=== PATIENT | male | born 1955 | race Caucasian/White ===

== ENCOUNTER 2017-03-05 13:56 | Emergency (ER) | payer BC ==
[~2017-03-05] VITALS: Ht 180.3 cm; Wt 11.0 kg
[~2017-03-05 13:56] MED LIST: APRE30TA2 PO; ASPI-630 PO; CETI10TA22 PO; CHLO4TAB PO; DOCU-109 PO; GABA-586 PO; HYDR-2766 PO; LISI10TA2 PO; METO25TA2 PO; POTA10TA10 PO; SIMV40TA3 PO; TRAM50TA PO
[2017-03-05] MEDS ORDERED: ONDA8TAB12 PO (14:19)
--- NOTE | 2017-03-05 14:19 | PHYS DOC ---
Past History Past Medical History: Hypertension, [place] Past Surgical History: Coronary Bypass Surgery, Tonsillectomy Additional Past Surgical Histo: exploratory laparotomy for ruptured spleen intra-abdominal injury and retai Smoking: Cigarettes Alcohol Use: Occasionally Drug Use: Marijuana, Opiates Adult General Chief Complaint Chief Complaint: dizzy spell [facility] HPI This patient is a pleasant 61-year-old male with history of hypertension hyperlipidemia prior heart disease requiring CABG and multiple other medical problems presents with a dizzy spell while he was in a recumbent position. Patient was working underneath table with a headlamp on when he looked up sharply felt a spinning sensation and became acutely nauseated. An attempt to calm himself he laid in his back and pushed himself out on the floor to get close to the phone when he vomited once nonbilious nonbloody emesis with mild food chunks. Patient denied any headache, chest pain, abdominal pain with the event. And at this point here in the emergency family is symptom-free. He denies any vision changes, he changed in speech pattern, challenges and memory facial weakness, weakness in his arms or legs or other symptoms. He remembers distinctly on several occasions when he was a younger man that certain light patterns and flashing lights may cause him to become intensely nauseated. Patient denies any URI symptoms, change in medications or other new chest pains. Patient also further denies any dyspnea on exertion recent trauma or tinnitus. He also denies any hearing loss. Review of Systems Review of Systems Constitutional: Denies fever or chills [] Eyes: Denies change in visual acuity, redness, or eye pain [] HENT: Denies nasal congestion or sore throat [] Respiratory: Denies cough or shortness of breath [] Cardiovascular: No additional information not addressed in HPI [] GI: Denies abdominal pain, bloody stools or diarrhea she had one episode of nausea with vomiting nonbilious nonbloody emesis with food particles.[] : Denies dysuria or hematuria [] Musculoskeletal: Denies back pain or joint pain [] Integument: Denies rash or skin lesions [] Neurologic: Denies headache, focal weakness or sensory changes [] Endocrine: Denies polyuria or polydipsia [] Allergies Allergies Allergies Coded Allergies Type Severity Reaction Last Updated Verified No Known Drug Allergies 08/23/15 No Physical Exam Physical Exam Constitutional: Well developed, well nourished, no acute distress, non-toxic appearance. [] HENT: Normocephalic, atraumatic, bilateral external ears normal, oropharynx moist, no oral exudates, nose normal. [] Eyes: PERRLA, EOMI, conjunctiva normal, no discharge. [] Neck: Normal range of motion, no tenderness, supple, no stridor. [] Cardiovascular:Heart rate regular rhythm, no murmur [] Lungs & Thorax: Bilateral breath sounds clear to auscultation [] Abdomen: Bowel sounds normal, soft, no tenderness, no masses, no pulsatile masses. [] Skin: Warm, dry, no erythema, no rash. [] Back: No tenderness, no CVA tenderness. [] Extremities: No tenderness, no cyanosis, no clubbing, ROM intact, no edema. [] Neurologic: Alert and oriented X 3, normal motor function, normal sensory function, no focal deficits noted. [] Psychologic: Affect normal, judgement normal, mood normal. [] EKG EKG []EKG timed 1406 03/05/2017 read by me demonstrates a P there were QRS normal sinus rhythm with marked sinus arrhythmia and occasional PACs patient has noted Q wave in V1 with a history of NH in the past and prior bypass this is likely where his injury apparently occurred. He also has a Q-wave in the inferior leads as well age undetermined. There is no new ST segment T-wave changes consistent with acute cardiac ischemia at this time. Radiology/Procedures Radiology/Procedures [] Course & Med Decision Making Course & Med Decision Making Pertinent Labs and Imaging studies reviewed. (See chart for details) ration presents with subacute onset of dizziness with nausea and vomiting times one episode. His symptoms have completely resolved patient's EKG is unremarkable for acute ST segment T-wave changes consistent with acute chronic ischemia given his prior cardiac history this could have been related to a cardiac dysrhythmia. Patient denies any palpitations or chest pain at the time of the event. He further admits that during his history in the past with certain patterns of light exposure patient will have nausea and dizziness. Patient denies any symptoms or history remote for a stroke at this time. Patient's Accu- Chek is negative feels at baseline is no longer nauseated although he was offered medications as well as blood work to ensure that there is no electrolyte abnormalities patient is more history going home with his . Time is now 216 and patient was reassessed twice to leave. There is report of a questionable bradycardic event occurred sometime while the patient was being placed on monitors but at this point his heart rate is normal and there is no record of this bradycardia. Continues to be symptomatically low heart rate of suggest that he immediately gets seen by her community resource consultant to have possible discussion of a pacemaker placement if necessary. [] Dragon Disclaimer Dragon Disclaimer This chart was dictated in whole or in part using Voice Recognition software in a busy, high-work load, and often noisy Emergency Department environment. It may contain unintended and wholly unrecognized errors or omissions. Departure Departure: Impression: Primary Impression: Near syncope Additional Impression: Nausea and vomiting Disposition: HOME, SELF-CARE Condition: STABLE Referrals: LAVON CORDERO DO (PCP) Patient Instructions: Near-Syncope Additional Instructions: My discharge plan Follow up: In addition patient is asked to followup with their primary doctor, within a week for followup examination and to address patient's ongoing medical conditions. Patient is advised that in the Emergency Department primary complaints are addressed and only in light of known signs and symptoms. Patient should return immediately to the emergency department if new signs and symptoms develop or patient's condition worsens in any way. At time of discharge patient was in stable condition and had verbalized understanding of the discharge instructions. Scripts Ondansetron (ZOFRAN ODT) 8 Mg Tab.rapdis 4 MG PO TID for 5 Days Prov: SERGEI SANCHEZ MD 03/05/17 Problem Qualifiers SERGEI SANCHEZ MD Mar 05, 2017 14:19
[2017-03-05 14:30] VITALS: BP 145/78
--- NOTE | 2017-03-05 15:58 | EKG ---
[address] [address] Test Date: 2017-03-05 Test Time: 14:06:03 Pat Name: JENNIFER MYERS Department: Room: Gender: M Dental Technician Metal: : 1955 Requested By: SERGEI SANCHEZ Order Number: [id number] Reading MD: Rajendra Sykes Measurements Intervals Cliff Rate: 79 P: 41 WY: 166 QRS: 64 QRSD: 100 T: -42 QT: 396 QTc: 460 Interpretive Statements SINUS RHYTHM ATRIAL PREMATURE COMPLEX(ES), ISELA Electronically Signed On 03-12-2017 8:16:50 CDT by Rajendra Sykes
== END 2017-03-05 14:44 | disposition home or self-care (01) ==
LOC: ER 13:56
DX: R55 Syncope and collapse (principal); R11.2 Nausea with vomiting, unspecified; E78.5 Hyperlipidemia, unspecified; I10 Essential (primary) hypertension; I25.2 Old myocardial infarction; F17.210 Nicotine dependence, cigarettes, uncomplicated; F12.10 Cannabis abuse, uncomplicated; F11.10 Opioid abuse, uncomplicated; Z95.1 Presence of aortocoronary bypass graft
CPT/HCPCS: 82947; 93005; 99285-25

== ENCOUNTER → 2017-04-29 | Outpatient (CLI) | payer BC ==
[~2017-04-29] MED LIST changes: +ONDA8TAB12 PO
[2017-04-29 12:36] LABS: ALBUMIN 3.4 g/dL (3.4-5.0); CREATININE 1.9 mg/dL (0.7-1.3); GFR 36.2; PHOSPHORUS 3.8 mg/dL (2.6-4.7); POTASSIUM 3.5 mmol/L (3.5-5.1)
== END | disposition home or self-care (01) ==
LOC: LAB 11:49
PROVIDERS: ATTEND General Practice
DX: Z51.81 Encounter for therapeutic drug level monitoring (principal); Z79.1 Long term (current) use of non-steroidal anti-inflammatories (NSAID); F17.210 Nicotine dependence, cigarettes, uncomplicated
CPT/HCPCS: 36415; 80069

== ENCOUNTER → 2017-08-07 | Outpatient (CLI) | payer BC ==
--- NOTE | 2017-08-07 12:45 | RAD ---
2 views of the Chest 08/07/2017 2:00 AM Indication: COUGH Comparison: Chest radiograph 01/08/2016 Findings: There is a dual-lead pacemaking/ICD device from a left subclavian approach. No pneumothorax is seen. No pleural effusion is identified. Basilar predominant interstitial coarsening and areas of probable scarring noted. The appearance is similar to comparison study. No acute osseous changes are identified. Calcified granuloma noted in the left upper lobe. Impression: No evidence of acute cardiopulmonary process or acute change from prior study.
== END | disposition home or self-care (01) ==
LOC: PMG 12:13
PROVIDERS: ATTEND General Practice
DX: J06.9 Acute upper respiratory infection, unspecified (principal); J84.10 Pulmonary fibrosis, unspecified; R05 Cough
CPT/HCPCS: 71046

== ENCOUNTER → 2018-02-17 | Outpatient (CLI) | payer BC, MEDICARE ==
--- NOTE | 2018-02-17 15:44 | CARD ---
MR#: [id number] Date of Study: 02/17/2018 Ordering Physician: ALEXIS SMIHT, Referring Physician: ALEXIS SMITH, Tech: Rafia Benoit APPROVED REPORT EXAM: Two-dimensional and M-mode echocardiogram with Doppler and color Doppler. Other Information Quality : Fair INDICATION Hypertension/HCVD Surgery/Intervention ICD/Pacemaker: RISK FACTORS Smoking 2D DIMENSIONS RVDd3.4 (2.9-3.5cm)Left Atrium(2D)4.4 (1.6-4.0cm) IVSd1.4 (0.7-1.1cm)Aortic Root(2D)3.4 (2.0-3.7cm) LVDd5.9 (3.9-5.9cm)LVOT Diameter2.3 (1.8-2.4cm) PWd1.4 (0.7-1.1cm)LVDs4.3 (2.5-4.0cm) FS (%) 26.9 %SV89.5 ml Aortic Valve AoV Peak Preston.141.1cm/sAoV VTI26.0cm AO Peak GR.6.9mmHgLVOT Peak Preston.89.8cm/s LVOT VTI 18.76cmAO Mean GR.4mmHg EB (VMAX)2.07yr3PLG (VTI)2.97cm2 Pulmonary Valve PV Peak Rkemqyaj720.5cm/sPV Peak Grad.5mmHg Tricuspid Valve TR P. Ndesfpnr803hm/sRAP PFWQBMGF4ljXz TR Peak Gr.50wgYcRVGQ19aoMr Pulmonary Vein S1 Qqhmzsve67.0cm/sD2 Oqgeodgk59.8cm/s LEFT VENTRICLE The Left Ventricle is borderline dilated. There is mild concentric left ventricular hypertrophy. The left ventricular systolic function is normal. The ejection fraction is 50-55%. Transmitral Doppler fl ow pattern is Grade I-abnormal relaxation pattern. RIGHT VENTRICLE The right ventricle is normal size. There is normal right ventricular wall thickness. The right ventr icular systolic function is normal. ATRIA The left atrium size is normal. The right atrium size is normal. The interatrial septum is intact wit h no evidence for an atrial septal defect or patent foramen ovale as noted on 2-D or Doppler imaging. AORTIC VALVE The aortic valve is normal in structure and function. Doppler and Color Flow revealed no significant aortic regurgitation. There is no significant aortic valvular stenosis. MITRAL VALVE The mitral valve is normal in structure and function. There is no mitral valve stenosis. Doppler and Color-flow revealed trace mitral regurgitation. TRICUSPID VALVE The tricuspid valve is not well visualized. Doppler and Color Flow revealed trace tricuspid regurgita tion. PULMONIC VALVE The pulmonic valve is not well visualized. Doppler and Color Flow revealed trace pulmonic valvular re gurgitation. GREAT VESSELS The aortic root is normal in size. The IVC is normal in size and collapses >50% with inspiration. PERICARDIAL EFFUSION There is no evidence of significant pericardial effusion. Critical Notification Critical Value: No <Conclusion> The Left Ventricle is borderline dilated. The left ventricular systolic function is normal. The ejection fraction is 50-55%. There is mild concentric left ventricular hypertrophy. There is no significant aortic valvular stenosis. Doppler and Color Flow revealed no significant aortic regurgitation. Doppler and Color-flow revealed trace mitral regurgitation. Doppler and Color Flow revealed trace tricuspid regurgitation. Signed by : Alexis Smith MD Electronically Approved : 02/17/2018 15:43:19
== END | disposition home or self-care (01) ==
LOC: ECHO 12:42
PROVIDERS: ATTEND Internal Medicine Cardiovascular Disease
DX: I42.2 Other hypertrophic cardiomyopathy (principal); I11.0 Hypertensive heart disease with heart failure; I50.22 Chronic systolic (congestive) heart failure; Z87.891 Personal history of nicotine dependence
CPT/HCPCS: 93306

== ENCOUNTER → 2018-04-20 | Outpatient (CLI) | payer MEDICARE ==
[~2018-04-20] MED LIST changes: -HYDR-2766 PO; +HYDR-2769 PO
--- NOTE | 2018-04-20 17:56 | RAD ---
CHEST PA LATERAL History: short of air, smoker x 20+ years Comparison: None. Findings: Left chest dual-chamber ICD. Median sternotomy wires mildly tortuous thoracic aorta. Cardiac size is stable.. Pulmonary vasculature is normal. There is upper lung emphysema. Bilateral bronchitis. Mild left lower lobe airspace disease. No pleural effusion or pneumothorax is seen. There is no acute bone abnormality. IMPRESSION: 1. Upper lung emphysema. 2. Bilateral bronchitis and mild left lower lobe airspace disease. Electronically signed by: José Manuel Puente MD (04/20/2018 5:52 PM) [id number]
== END | disposition home or self-care (01) ==
LOC: RAD 12:48
PROVIDERS: ATTEND General Practice
DX: J43.8 Other emphysema (principal); J40 Bronchitis, not specified as acute or chronic; Z87.891 Personal history of nicotine dependence
CPT/HCPCS: 71046

== ENCOUNTER 2019-05-02 18:14 | Emergency (ER) | payer MEDICARE ==
[~2019-05-02] VITALS: Ht 180.3 cm; Wt 115.2 kg
[~2019-05-02 18:14] MED LIST changes: +SIMV40TA18 PO; -SIMV40TA3 PO
[2019-05-02] MEDS ORDERED: IV NORMAL SALINE 1,000ML 1,000 ML IV SCH (18:26)
--- NOTE | 2019-05-02 18:48 | PHYS DOC ---
Past History Past Medical History: High Cholesterol, Hypertension, [place] Past Surgical History: Coronary Bypass Surgery, Pacemaker, Tonsillectomy Additional Past Surgical Histo: exploratory laparotomy for ruptured spleen intra-abdominal injury and retai Smoking: Cigarettes Alcohol Use: Occasionally Drug Use: Marijuana, Opiates Adult General Chief Complaint Chief Complaint: SYNCOPE HPI HPI 63-year-old male presents with syncopal episode. The patient is just finishing eating dinner and they were driving home when he began to feel ill. He became diaphoretic and felt like he was given a pass out. This last thing he remembers. His states that the patient had a syncopal episode in the vehicle. It did not last more than a couple of minutes. When the patient woke up he didn't seem to have some slurred speech and answered questions slowly. His answers were making sense however. On arrival, the patient's skin was very cool. His initial temporal temperature was 95. His oral temperature was greater than 97. Patient has a history of a pacemaker and defibrillator, bypass surgery and a recent cardiac ablation. Prior to this episode, the patient was feeling normal. He had no signs of illness before or during dinner. He has not had syncopal episode previously. He is a cigarette smoker. His not had any alcohol today. He does occasionally smoke marijuana. He is feeling tired right now, but no other significant symptoms. Review of Systems Review of Systems Constitutional: Denies fever or chills [] Eyes: Denies change in visual acuity, redness, or eye pain [] HENT: Denies nasal congestion or sore throat [] Respiratory: Denies cough or shortness of breath [] Cardiovascular: No additional information not addressed in HPI [] GI: Denies abdominal pain, nausea, vomiting, bloody stools or diarrhea [] : Denies dysuria or hematuria [] Musculoskeletal: Denies back pain or joint pain [] Integument: Denies rash or skin lesions [] Neurologic: Syncope. Slurred speech. Denies headache, focal weakness or sensory changes [] Endocrine: Denies polyuria or polydipsia [] All other systems were reviewed and found to be within normal limits, except as documented in this note. Current Medications Current Medications Current Medications Medications (Trade) Dose Ordered Sig/Obed Start Time Stop Time Status Last Admin Dose Admin Sodium Chloride 1,000 ml @ 1,000 mls/hr Q1H 05/02/19 18:26 05/02/19 19:25 Allergies Allergies Allergies Coded Allergies Type Severity Reaction Last Updated Verified No Known Drug Allergies 08/23/15 No Physical Exam Physical Exam Constitutional: Well developed, well nourished, no acute distress, non-toxic ap pearance. [] HENT: Normocephalic, atraumatic, bilateral external ears normal, oropharynx moist, no oral exudates, nose normal. [] Eyes: PERRLA, EOMI, conjunctiva normal, no discharge. [] Neck: Normal range of motion, no tenderness, supple, no stridor. [] Cardiovascular:Heart rate regular rhythm, no murmur [] Lungs & Thorax: Bilateral breath sounds clear to auscultation [] Abdomen: Bowel sounds normal, soft, no tenderness, no masses, no pulsatile masses. [] Skin: Cold, damp, no erythema, no rash. [] Back: No tenderness, no CVA tenderness. [] Extremities: No tenderness, no cyanosis, no clubbing, ROM intact, no edema. [] Neurologic: Alert and oriented X 3, normal motor function, normal sensory function, no focal deficits noted. Very mild slurred speech. No facial droop or other focal findings.[] Psychologic: Affect normal, judgement normal, mood normal. [] EKG EKG [] Radiology/Procedures Radiology/Procedures [] Impressions: Chest PA and lateral 05/02/2019. Reason for exam: Syncope and congestion. Comparison is made with a study of 04/20/2018. A defibrillator device remains in place. No new infiltrate or effusion is seen. Heart size and pulmonary vascularity appear normal. IMPRESSION: No apparent acute abnormality. Electronically signed by: Alexis Donovan Jr., MD (05/02/2019 7:18 PM) [facility] DICTATED AND SIGNED BY: ALEXIS DONOVAN Jr, MD DATE: 05/02/191917 CC: LAVON CORDERO DO; JUANA AUSTIN DO ~ EXAM: CT Head without IV contrast CLINICAL HISTORY: Syncope, slurred speech COMPARISON: None. TECHNIQUE: Routine CT of the head without contrast. Soft tissues and bone windows were reviewed. PQRS compliance statement - One or more of the following individualized dose reduction techniques were utilized for this study: 1. Automated exposure control 2. Adjustment of the mA and/or kV according to patient size 3. Use of iterative reconstruction technique FINDINGS: There is no evidence of hemorrhage, mass or extra-axial fluid collection. Valdivia-white differentiation is maintained with no evidence of edema. Low-attenuation in the periventricular white matter likely changes of chronic small vessel disease. There is no mass effect or shift of the intracranial structures. The ventricles, basilar cisterns and cortical sulci are normal in size and configuration for the patients stated age. The cerebellum and brainstem are unremarkable. The calvarium demonstrates no evidence of fracture or focal lesion. Bifrontal craniotomy changes are seen. There is normal aeration of the visualized paranasal sinuses and mastoid air cells. The visualized portions of the orbits are normal. IMPRESSION: 1. No evidence for acute intracranial process. 2. White matter changes likely of chronic small vessel disease. Electronically signed by: Gurwinder Kurtz MD (05/02/2019 7:12 PM) [facility] DICTATED AND SIGNED BY: GURWINDER KURTZ MD DATE: 05/02/191911 CC: LAVON CORDERO DO; JUANA AUSTIN DO ~ Course & Med Decision Making Course & Med Decision Making Pertinent Labs and Imaging studies reviewed. (See chart for details) Patient's chest x-ray is negative for acute findings. His head CT is negative for acute findings. His labs are significant for creatinine 1.4. This is improved from his most recent creatinine in our system from 2 years ago. I am unsure if his baseline. The patient's troponin is within the realm of normal. It is also similar to previous. We have given a liter of normal saline. After the patient's body was warm, his slurred speech improved completely. He is feeling quite a bit better. His blood pressure improved. It's possible that this all started out as a vasovagal syncope after eating a large meal. His urinalysis is unremarkable. I'm not exactly certain what led to the patient's syncope, but I do not see anything concerning at this time. I recommended that he follow-up closely with his primary care physician. If he has another event, he will need to be admitted to the hospital for further workup. He is stable for discharge at this time. [] Dragon Disclaimer Dragon Disclaimer This electronic medical record was generated, in whole or in part, using a voice recognition dictation system. Departure Departure: Impression: Primary Impression: Syncope Disposition: 01 HOME, SELF-CARE Condition: IMPROVED Referrals: LAVON CORDERO DO (PCP) Patient Instructions: Syncope, Lpsl-ts-Urga Problem Qualifiers Primary Impression: Syncope Syncope type: vasovagal syncope Qualified Codes: R55 - Syncope and collapse JUANA AUSTIN DO May 02, 2019 18:48
[2019-05-02] MEDS ORDERED: IV NORMAL SALINE 1,000ML 1,000 ML IV ONE (19:00)
[2019-05-02 19:03] LABS: BASO # 0.1 x10^3/uL (0.0-0.2); BASO % 1 % (0-3); EOS # 0.2 x10^3/uL (0.0-0.7); EOS % 2 % (0-3); HEMATOCRIT 47.8 % (39.0-53.0); HEMOGLOBIN 15.3 g/dL (13.0-17.5); LYMPH # 1.2 x10^3/uL (1.0-4.8); LYMPH % 14 % (24-48); MEAN CORPUSCULAR HEMOGLOBIN 31 pg (25-35); MEAN CORPUSCULAR HGB CONC 32 g/dL (31-37); MEAN CORPUSCULAR VOLUME 96 fL (79-100); MONO # 0.4 x10^3/uL (0.0-1.1); MONO % 5 % (0-9); NEUT # 6.3 x10^3uL (1.8-7.7); NEUT % 78 % (31-73); PLATELET COUNT 219 x10^3/uL (140-400); RED BLOOD COUNT 4.99 x10^6/uL (4.30-5.70); RED CELL DISTRIBUTION WIDTH 17.3 % (11.5-14.5); WHITE BLOOD COUNT 8.2 x10^3/uL (4.0-11.0)
[2019-05-02 19:11] LABS: CALCIUM 8.8 mg/dL (8.5-10.1); CREATININE 1.4 mg/dL (0.7-1.3); GFR 51.2; POTASSIUM 3.7 mmol/L (3.5-5.1)
--- NOTE | 2019-05-02 19:15 | RAD ---
EXAM: CT Head without IV contrast CLINICAL HISTORY: Syncope, slurred speech COMPARISON: None. TECHNIQUE: Routine CT of the head without contrast. Soft tissues and bone windows were reviewed. PQRS compliance statement - One or more of the following individualized dose reduction techniques were utilized for this study: 1. Automated exposure control 2. Adjustment of the mA and/or kV according to patient size 3. Use of iterative reconstruction technique FINDINGS: There is no evidence of hemorrhage, mass or extra-axial fluid collection. Valdivia-white differentiation is maintained with no evidence of edema. Low-attenuation in the periventricular white matter likely changes of chronic small vessel disease. There is no mass effect or shift of the intracranial structures. The ventricles, basilar cisterns and cortical sulci are normal in size and configuration for the patients stated age. The cerebellum and brainstem are unremarkable. The calvarium demonstrates no evidence of fracture or focal lesion. Bifrontal craniotomy changes are seen. There is normal aeration of the visualized paranasal sinuses and mastoid air cells. The visualized portions of the orbits are normal. IMPRESSION: 1. No evidence for acute intracranial process. 2. White matter changes likely of chronic small vessel disease. Electronically signed by: Gurwinder Terrell MD (05/02/2019 7:12 PM) [facility]
--- NOTE | 2019-05-02 19:21 | RAD ---
Chest PA and lateral 05/02/2019. Reason for exam: Syncope and congestion. Comparison is made with a study of 04/20/2018. A defibrillator device remains in place. No new infiltrate or effusion is seen. Heart size and pulmonary vascularity appear normal. IMPRESSION: No apparent acute abnormality. Electronically signed by: Anibal Donovan Jr., MD (05/02/2019 7:18 PM) [facility]
[2019-05-02 19:23] LABS: ALBUMIN/GLOBULIN RATIO 0.9 (1.0-1.7); TOTAL BILIRUBIN 0.4 mg/dL (0.2-1.0); TOTAL PROTEIN 6.2 g/dL (6.4-8.2)
[2019-05-02 21:06] LABS: BACTERIA,URINE FEW /HPF (0-FEW); BILIRUBIN,URINE NEG (NEG); CLARITY,URINE HAZY; COLOR,URINE YELLOW; GLUCOSE,URINE NEG (NEG); HYALINE CASTS, URINE OCC /HPF; NITRITE,URINE NEG (NEG); RBC,URINE 0 /HPF (0-2); SQUAMOUS EPITHELIAL CELL,UR OCC /LPF; UROBILINOGEN,URINE 0.2 mg/dL (0.2 mg/dL)
[2019-05-02 21:30] VITALS: BP 142/67
== END 2019-05-02 21:32 | disposition home or self-care (01) ==
LOC: ER 18:14
DX: R55 Syncope and collapse (principal); E78.00 Pure hypercholesterolemia, unspecified; I10 Essential (primary) hypertension; F17.210 Nicotine dependence, cigarettes, uncomplicated; I25.2 Old myocardial infarction; Z95.1 Presence of aortocoronary bypass graft; Z95.0 Presence of cardiac pacemaker
CPT/HCPCS: 36415; 70450; 71046; 80053; 81001; 83880; 84484; 85025; 87086; 96360; 96361; 99285-25; J7030

== ENCOUNTER → 2019-06-18 | Outpatient (CLI) | payer MEDICARE ==
[~2019-06-18] MED LIST changes: -CETI10TA22 PO; +CETI10TA24 PO
[2019-06-18 15:39] LABS: BASO # 0.1 x10^3/uL (0.0-0.2); BASO % 1 % (0-3); EOS # 0.2 x10^3/uL (0.0-0.7); EOS % 2 % (0-3); HEMATOCRIT 50.6 % (39.0-53.0); HEMOGLOBIN 16.2 g/dL (13.0-17.5); LYMPH # 1.4 x10^3/uL (1.0-4.8); LYMPH % 19 % (24-48); MEAN CORPUSCULAR HEMOGLOBIN 31 pg (25-35); MEAN CORPUSCULAR HGB CONC 32 g/dL (31-37); MEAN CORPUSCULAR VOLUME 96 fL (79-100); MONO # 0.9 x10^3/uL (0.0-1.1); MONO % 12 % (0-9); NEUT # 4.8 x10^3uL (1.8-7.7); NEUT % 65 % (31-73); PLATELET COUNT 219 x10^3/uL (140-400); RED BLOOD COUNT 5.27 x10^6/uL (4.30-5.70); RED CELL DISTRIBUTION WIDTH 15.8 % (11.5-14.5); WHITE BLOOD COUNT 7.3 x10^3/uL (4.0-11.0)
[2019-06-18 15:50] LABS: ALBUMIN 3.4 g/dL (3.4-5.0); CALCIUM 8.6 mg/dL (8.5-10.1); CREATININE 1.2 mg/dL (0.7-1.3); GFR 61.1; POTASSIUM 4.3 mmol/L (3.5-5.1); TOTAL BILIRUBIN 0.4 mg/dL (0.2-1.0); TOTAL PROTEIN 6.9 g/dL (6.4-8.2)
== END | disposition home or self-care (01) ==
LOC: LAB 14:58
PROVIDERS: ATTEND Dermatology
DX: L40.0 Psoriasis vulgaris (principal); Z79.899 Other long term (current) drug therapy
CPT/HCPCS: 36415; 80053; 85025

== ENCOUNTER → 2020-02-03 | Outpatient (CLI) | payer MEDICARE ==
[~2020-02-03] MED LIST changes: -CETI10TA24 PO; +CETI10TA74 PO
--- NOTE | 2020-02-03 13:15 | RAD ---
CT LOW DOSE LUNG SCREENING INDICATION: Reason: SMOKER LUNG CA SCREENING 1PK/DAY X 50 YEARS COMPARISON STUDY: CT abdomen pelvis 11/09/2008. TECHNIQUE: Unenhanced axial images were obtained through the lungs and upper abdomen using low dose technique. Coronal and sagittal multiplanar reformatted images were also obtained. PQRS compliance statement: One or more of the following individualized dose reduction techniques were utilized for this examination: 1. Automated exposure control 2. Adjustment of the mA and/or kV according to patient size 3. Use of iterative reconstruction technique FINDINGS: Lung Nodules: No suspicious pulmonary nodules. Calcified pulmonary granulomas. Lungs and Airways: No pulmonary mass or consolidation. Centrilobular emphysema. Bronchial wall thickening. Saber-sheath trachea. Pleura: Normal pleural spaces. Heart and Mediastinum: The visualized portions of the thyroid gland are normal in size and attenuation. No axillary or supraclavicular lymphadenopathy. No mediastinal, hilar or retrocrural lymphadenopathy. Cardiomegaly. Coronary artery atherosclerotic disease. CABG No pericardial effusion. Atherosclerosis of the thoracic aorta. Abdomen: Stable splenic fragments. Bones and Soft Tissues: Degenerative changes of the spine. IMPRESSION: 1. No suspicious pulmonary nodules Lung-RADS Category: 1 Management Recommendation: Follow up low-dose chest CT in one year. 2. Centrilobular emphysema. Electronically signed by: Christiano Sandoval MD (02/03/2020 1:12 PM) [id number]
== END | disposition home or self-care (01) ==
LOC: CT 11:08
PROVIDERS: ATTEND Internal Medicine Pulmonary Disease
DX: Z12.2 Encounter for screening for malignant neoplasm of respiratory organs (principal); J43.2 Centrilobular emphysema; I25.10 Atherosclerotic heart disease of native coronary artery without angina pectoris; I51.7 Cardiomegaly; J84.10 Pulmonary fibrosis, unspecified; J98.4 Other disorders of lung; F17.208 Nicotine dependence, unspecified, with other nicotine-induced disorders
CPT/HCPCS: G0297

== ENCOUNTER → 2020-08-16 | Outpatient (CLI) | payer MEDICARE ==
[~2020-08-16] MED LIST changes: +LISI10TA16 PO; -LISI10TA2 PO
--- NOTE | 2020-08-16 11:11 | RAD ---
CT LOW DOSE LUNG SCREEN INDICATION: History of smoking COMPARISON STUDY: CT abdomen pelvis 11/09/2008. TECHNIQUE: Unenhanced axial images were obtained through the lungs and upper abdomen using low dose technique. Coronal and sagittal multiplanar reformatted images were also obtained. PQRS compliance statement: One or more of the following individualized dose reduction techniques were utilized for this examinat ion: 1. Automated exposure control 2. Adjustment of the mA and/or kV according to patient size 3. Use of iterative reconstruction technique FINDINGS: Lung Nodules: No suspicious pulmonary nodules. Calcified pulmonary granulomas. Lungs and Airways: No pulmonary mass or consolidation. Scattered bilateral centrilobular groundglass nodules. Centrilobular emphysema. Bronchial wall thickening. Saber-sheath trachea. Pleura: Normal pleural spaces. Heart and Mediastinum: The visualized portions of the thyroid gland are normal in size and attenuatio n. No axillary or supraclavicular lymphadenopathy. No mediastinal, hilar or retrocrural lymphadenopat hy. Cardiomegaly. Coronary artery atherosclerotic disease. CABG No pericardial effusion. Atherosclero sis of the thoracic aorta. Abdomen: Stable splenic fragments. Bones and Soft Tissues: Degenerative changes of the spine. IMPRESSION: 1. No suspicious pulmonary nodules Lung-RADS Category: 1 Management Recommendation: Follow up low-dose chest CT in one year. 2. Bilateral centrilobular groundglass nodules, which may represent infectious bronchiolitis or respi ratory bronchiolitis. Electronically signed by: Christiano Sandoval MD (08/16/2020 11:09 AM) [id number]
== END ==
LOC: CT 10:11
PROVIDERS: ATTEND Internal Medicine Pulmonary Disease
DX: Z12.2 Encounter for screening for malignant neoplasm of respiratory organs (principal); R91.8 Other nonspecific abnormal finding of lung field; Z95.1 Presence of aortocoronary bypass graft; F17.210 Nicotine dependence, cigarettes, uncomplicated
CPT/HCPCS: 71271

== ENCOUNTER 2020-10-09 09:08 | Emergency (ER) | payer MEDICARE ==
[~2020-10-09] VITALS: Ht 180.3 cm; Wt 111.3 kg
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
[2020-10-09] MEDS: ONDANSETRON PF 4 MG/2 ML VIAL. IVP ONE (10:14)
[2020-10-09 10:23] LABS: BASO # 0.1 x10^3/uL (0.0-0.2); BASO % 1 % (0-3); EOS % 0 % (0-3); HEMATOCRIT 46.8 % (39.0-53.0); HEMOGLOBIN 15.5 g/dL (13.0-17.5); LYMPH # 0.6 x10^3/uL (1.0-4.8); LYMPH % 5 % (24-48); MEAN CORPUSCULAR HEMOGLOBIN 31 pg (25-35); MEAN CORPUSCULAR HGB CONC 33 g/dL (31-37); MEAN CORPUSCULAR VOLUME 95 fL (79-100); MONO # 0.6 x10^3/uL (0.0-1.1); MONO % 6 % (0-9); NEUT # 9.1 x10^3uL (1.8-7.7); NEUT % 88 % (31-73); PLATELET COUNT 197 x10^3/uL (140-400); RED BLOOD COUNT 4.96 x10^6/uL (4.30-5.70); RED CELL DISTRIBUTION WIDTH 16.6 % (11.5-14.5); WHITE BLOOD COUNT 10.4 x10^3/uL (4.0-11.0)
[2020-10-09 10:33] LABS: CALCIUM 9.4 mg/dL (8.5-10.1); CREATININE 1.1 mg/dL (0.7-1.3); GFR 67.2; POTASSIUM 4.3 mmol/L (3.5-5.1)
[2020-10-09 10:46] LABS: ALBUMIN 3.2 g/dL (3.4-5.0); ALBUMIN/GLOBULIN RATIO 0.9 (1.0-1.7); TOTAL BILIRUBIN 0.8 mg/dL (0.2-1.0); TOTAL PROTEIN 6.6 g/dL (6.4-8.2)
[2020-10-09] MEDS ORDERED: ONDA4TAB12 PO (12:01)
[2020-10-09 12:25] VITALS: BP 123/68
--- NOTE | 2020-10-09 18:39 | EKG ---
[address] [address] Test Date: 2020-10-09 Test Time: 10:16:59 Pat Name: JENNIFER MYERS Department: Room: Gender: M Associate Chemist: VU : 1955 Requested By: ESCOBAR GENAO Order Number: [id number] Reading MD: Bao Levin Measurements Intervals [place] Rate: 73 P: -62 CT: 182 QRS: 66 QRSD: 102 T: 232 QT: 418 QTc: 464 Interpretive Statements ATRIAL PACED RHYTHM VENTRICULAR PREMATURE COMPLEX(ES), TRIGEMINY QRS(T) CONTOUR ABNORMALITY CONSISTENT WITH ANTEROSEPTAL INFARCT PROBABLY OLD T ABNORMALITY IN LATERAL LEADS INFEROLATERAL LEADS ABNORMAL ECG Electronically Signed On 10-10-2020 15:03:35 CDT by Bao Levin
== END 2020-10-09 12:33 | disposition home or self-care (01) ==
LOC: ER 09:08
DX: R11.2 Nausea with vomiting, unspecified (principal); J44.9 Chronic obstructive pulmonary disease, unspecified; E78.00 Pure hypercholesterolemia, unspecified; I10 Essential (primary) hypertension; I25.2 Old myocardial infarction; F17.210 Nicotine dependence, cigarettes, uncomplicated; Z95.1 Presence of aortocoronary bypass graft; Z95.0 Presence of cardiac pacemaker
CPT/HCPCS: 36415; 80053; 83605; 83690; 83735; 83880; 84484; 85025; 93005; 96374; 99285; J2405

== ENCOUNTER → 2020-11-20 | Outpatient (CLI) | payer MEDICARE ==
[~2020-11-20] MED LIST changes: +ONDA4TAB12 PO
[2020-11-20 13:10] LABS: BASO # 0.1 x10^3/uL (0.0-0.2); BASO % 2 % (0-3); EOS # 0.2 x10^3/uL (0.0-0.7); EOS % 3 % (0-3); HEMATOCRIT 49.2 % (39.0-53.0); HEMOGLOBIN 16.1 g/dL (13.0-17.5); LYMPH % 13 % (24-48); MEAN CORPUSCULAR HEMOGLOBIN 31 pg (25-35); MEAN CORPUSCULAR HGB CONC 33 g/dL (31-37); MEAN CORPUSCULAR VOLUME 94 fL (79-100); MONO # 0.9 x10^3/uL (0.0-1.1); MONO % 12 % (0-9); NEUT # 5.4 x10^3uL (1.8-7.7); NEUT % 70 % (31-73); PLATELET COUNT 218 x10^3/uL (140-400); RED BLOOD COUNT 5.23 x10^6/uL (4.30-5.70); RED CELL DISTRIBUTION WIDTH 17.5 % (11.5-14.5); WHITE BLOOD COUNT 7.7 x10^3/uL (4.0-11.0)
[2020-11-20 13:27] LABS: ALBUMIN 3.2 g/dL (3.4-5.0); ALBUMIN/GLOBULIN RATIO 0.8 (1.0-1.7); CALCIUM 9.1 mg/dL (8.5-10.1); CREATININE 1.6 mg/dL (0.7-1.3); GFR 43.6; POTASSIUM 4.1 mmol/L (3.5-5.1); TOTAL BILIRUBIN 0.7 mg/dL (0.2-1.0); TOTAL PROTEIN 7.1 g/dL (6.4-8.2)
== END ==
LOC: LAB 11:31
DX: L40.0 Psoriasis vulgaris (principal)
CPT/HCPCS: 80053; 85025; 86481; 86705; 86706; 86803; 87340

== ENCOUNTER 2021-02-22 17:35 | Observation (INO) | payer MEDICARE, OTHER ==
[~2021-02-22] VITALS: Ht 177.8 cm; Wt 112.5 kg
--- NOTE | 2021-02-22 18:26 | EKG ---
[address] [address] Test Date: 2021-02-22 Test Time: 17:56:28 Pat Name: JENNIFER MYERS Department: Room: Gender: M Beverage Manager: ELAINE : 1955 Requested By: JENNIFER CRAIG Order Number: [id number] Reading MD: Rajendra Sykes MD Measurements Intervals [place] Rate: 64 P: -66 OR: 186 QRS: 48 QRSD: 96 T: 136 QT: 430 QTc: 448 Interpretive Statements SINUS RHYTHM NON-SPECIFIC ST/T CHANGES CONSIDER INFERIOR INFARCT Electronically Signed On 02-26-2021 11:41:07 CDT by Rajendra Sykes MD
--- NOTE | 2021-02-22 19:04 | RAD ---
AP chest. HISTORY: Syncopal episode, short of air AP view was taken of the chest. There is a left pacemaker with atrial ventricular leads without morocho e. Heart is upper normal in size. There is slight blunting of the costophrenic angles which is chroni c likely pleural thickening although trace of effusion is possible. There are no confluent infiltrate s. There is peribronchial thickening which is chronic noted on old CT from August. IMPRESSION: 1. No acute infiltrates. 2. Mild. Bronchial thickening which is chronic. Electronically signed by: Jeff Evans MD (02/22/2021 7:02 PM) [facility]
--- NOTE | 2021-02-22 19:19 | RAD ---
Exam: CT head INDICATION: Syncopal episode TECHNIQUE: Sequential axial images through the head were obtained without the administration of IV co ntrast. Exposure: One or more of the following in the visualized dose reduction techniques were utilized for this examination: 1. Automated exposure control 2. Adjustment of the MA and/or KV according to patient size 3. Use of iterative of reconstructive technique Comparisons: 05/02/2019 FINDINGS: No focal parenchymal lesion or hemorrhage is identified. There is no midline shift or sulcal effaceme nt. Patchy hypodensity in the periventricular white matter. Bilateral jesus holes at the frontal regions. No acute vascular territory infarction is identified. Asif-white distinction is preserved. The ventricular system is within normal limits without compression hydrocephalus. The basal cisterns are well maintained. The visualized portions of the paranasal sinuses and mastoid air cells are well-pneumatized. No acute fractures. IMPRESSION: Chronic changes without acute intracranial abnormality. Electronically signed by: Holley Melendez MD (02/22/2021 7:17 PM) [facility]
[2021-02-22 19:40] LABS: BASO # 0.1 x10^3/uL (0.0-0.2); BASO % 1 % (0-3); EOS # 0.2 x10^3/uL (0.0-0.7); EOS % 2 % (0-3); HEMATOCRIT 41.4 % (39.0-53.0); HEMOGLOBIN 13.5 g/dL (13.0-17.5); LYMPH # 1.4 x10^3/uL (1.0-4.8); LYMPH % 16 % (24-48); MEAN CORPUSCULAR HEMOGLOBIN 30 pg (25-35); MEAN CORPUSCULAR HGB CONC 33 g/dL (31-37); MEAN CORPUSCULAR VOLUME 92 fL (79-100); MONO # 1.2 x10^3/uL (0.0-1.1); MONO % 13 % (0-9); NEUT % 69 % (31-73); PLATELET COUNT 210 x10^3/uL (140-400); RED BLOOD COUNT 4.48 x10^6/uL (4.30-5.70); RED CELL DISTRIBUTION WIDTH 15.8 % (11.5-14.5); WHITE BLOOD COUNT 8.7 x10^3/uL (4.0-11.0)
[2021-02-22 19:48] LABS: CALCIUM 9.1 mg/dL (8.5-10.1); CREATININE 2.6 mg/dL (0.7-1.3); GFR 24.9; POTASSIUM 4.6 mmol/L (3.5-5.1)
[2021-02-22 19:57] LABS: BACTERIA,URINE 0 /HPF (0-FEW); BILIRUBIN,URINE NEG (NEG); CLARITY,URINE CLEAR; COLOR,URINE YELLOW; GLUCOSE,URINE NEG (NEG); NITRITE,URINE NEG (NEG); RBC,URINE 0 /HPF (0-2); SQUAMOUS EPITHELIAL CELL,UR OCC /LPF; UROBILINOGEN,URINE 0.2 mg/dL (0.2 mg/dL); WBC,URINE 0 /HPF (0-4)
[2021-02-22 20:03] LABS: ALBUMIN 3.2 g/dL (3.4-5.0); ALBUMIN/GLOBULIN RATIO 0.8 (1.0-1.7); TOTAL BILIRUBIN 0.5 mg/dL (0.2-1.0)
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
[2021-02-22 20:51] LABS: AMPHETAMINE/METHAMPHETAMINE NEG (NEG); BARBITURATES NEG (NEG); BENZODIAZEPINES NEG (NEG); CANNABINOIDS POS (NEG); COCAINE NEG (NEG); METHADONE NEG (NEG); OPIATES NEG (NEG); PHENCYCLIDINE NEG (NEG)
[2021-02-22] MEDS ORDERED: IV NORMAL SALINE 1,000ML 1,000 ML IV ONE (21:30)
[2021-02-22] MEDS: AMIODARONE HCL 200 MG TABLET. PO SCH (21:50)
--- NOTE | 2021-02-22 22:18 | NUR ---
The patient, JENNIFER MYERS, 65 y/o, M admitted by CRISTOFER MOREL MD, was given written information regarding hospital policies, unit procedures and contact persons. Valuables were checked and logged. Call light at bedside.
[2021-02-22 22:58] VITALS: BP 105/62
[2021-02-22] MEDS ORDERED: MIRTAZAPINE 30 MG TABLET ONE (22:58)
[2021-02-22] MEDS ORDERED: MIRTAZAPINE 15 MG TABLET ONE (23:00)
[2021-02-22] MEDS ORDERED: TEMAZEPAM 15 MG CAPSULE PO PRN (23:00)
[2021-02-23] MEDS: AMIODARONE HCL 200 MG TABLET. PO SCH (07:36)
[2021-02-23 07:47] VITALS: BP 108/67
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
[2021-02-23 09:35] LABS: CALCIUM 8.9 mg/dL (8.5-10.1); CREATININE 2.1 mg/dL (0.7-1.3); GFR 31.9; POTASSIUM 4.2 mmol/L (3.5-5.1)
--- NOTE | 2021-02-23 09:48 | DS ---
DATE OF DISCHARGE: 02/23/2021 ATTENDING PHYSICIAN: Dr. Robbins FINAL DISCHARGE DIAGNOSES: 1. Syncopal episode. 2. Orthostatic hypotension. 3. Dehydration due to diuretics. 4. Known coronary artery disease. 5. History of ventricular tachycardia with recent pacemaker defibrillator placement. 6. Substance abuse. 7. Chronic obstructive pulmonary disease. 8. Known coronary artery disease. 9. Prerenal azotemia due to diuretics. HISTORY AND PHYSICAL: The patient is a 65-year-old gentleman on diuretics and GINGER inhibitor. He has cardiomyopathy with ventricular tachycardia, recent placement of a pacemaker defibrillator. He was recently started on diuretics and afterload reduction by Dr. Lee. The patient had a syncopal episode. He was a glazed over. found him. EMS people were called. Workup in the ED showed orthostatic hypotension. Negative CT scan. He had IV hydration with marked improvement. PHYSICAL EXAMINATION: Please see my dictated note. PERTINENT LABORATORY AND X-RAY STUDIES: Hemoglobin 13.5 g/dL, white count was 8700. BUN was 30, creatinine 2.6 mg/dL. Cardiac enzymes were negative for coronary ischemia. BNP 1000. A followup chemistries pending at the time of discharge. Toxicology screen positive for tetrahydrocannabinol and a coronavirus was reported negative. COURSE IN THE HOSPITAL: The patient was admitted overnight for observation. He had no rhythm problems. He was given IV saline gently. We held his diuretics. He did well. By the next day, his blood pressures up to 108/86 without any orthostasis. Heart rate was between 60 and 80. He was afebrile, oxygen saturation 90%. I had a long discussion with the regarding current regimen. He wanted to go home. I felt this is reasonable. For the next 2 days over the weekend, he is going to hold his diuretics as well as his lisinopril. He should continue his other meds including aspirin daily, Neurontin, hydrocodone p.r.n., Toprol-XL 25 mg daily, potassium supplementation, Zocor. He has followup appointment with Dr. Lee this coming Friday. Hopefully, at that time, he can be reassessed, orthostatic blood pressures can be drawn and the decision whether to restart preload and afterload reduction can be determined. He was discharged from our hospital in stable condition with explicit instruction and followup care. YESI DR: Gi TID: [id number] CC: NAGI GARCIA, ALEXIS LEE MD
--- NOTE | 2021-02-23 10:05 | NUR ---
PT WHEELED TO THE FRONT BY STAFF. PT HAS DISCHARGE PAPERWORK AND BELONGINGS. HEART MONITOR AND IV DC'D. PICKED PT UP.
== END 2021-02-23 10:06 | disposition home or self-care (01) ==
LOC: ER 17:35 → INTOOBSV 21:17 → 1 SOUTH 21:17
PROVIDERS: ADMIT Hospitalist; ATTEND Hospitalist
DX: R55 Syncope and collapse (principal); Z20.822 Contact with and (suspected) exposure to COVID-19; E86.0 Dehydration; T50.2X5A Adverse effect of carbonic-anhydrase inhibitors, benzothiadiazides and other diuretics, initial encounter; I25.10 Atherosclerotic heart disease of native coronary artery without angina pectoris; N17.9 Acute kidney failure, unspecified; I47.2 Ventricular tachycardia; J44.9 Chronic obstructive pulmonary disease, unspecified; R79.89 Other specified abnormal findings of blood chemistry; I10 Essential (primary) hypertension; I42.9 Cardiomyopathy, unspecified; E78.5 Hyperlipidemia, unspecified; I49.9 Cardiac arrhythmia, unspecified; E78.00 Pure hypercholesterolemia, unspecified; Z79.82 Long term (current) use of aspirin; Z86.79 Personal history of other diseases of the circulatory system; Z87.891 Personal history of nicotine dependence; Z91.14 Patient's other noncompliance with medication regimen; Z95.1 Presence of aortocoronary bypass graft; Z79.899 Other long term (current) drug therapy; Z98.890 Other specified postprocedural states
CPT/HCPCS: 36415; 70450; 71045; 80048; 80053; 80307; 81001; 82553; 83880; 84484; 85025; 87426; 93005; 96360; 96361; 99285; G0378; J7030; U0003; G0379

== ENCOUNTER → 2021-06-18 | Outpatient (CLI) | payer MEDICARE, OTHER ==
--- NOTE | 2021-06-18 09:25 | RAD ---
EXAM: Chest, 2 views. HISTORY: Short of breath. COMPARISON: 02/22/2021 FINDINGS: 2 views of chest are obtained. There is diffuse interstitial infiltrate. There is a suspect ed trace right pleural effusion. There is a stable cardiac silhouette and evidence of prior CABG. The re is a left-sided cardiac pacemaker defibrillator. There are calcified granulomas. IMPRESSION: Diffuse interstitial infiltrate with suspected trace right pleural effusion. Electronically signed by: Sultana Nino MD (06/18/2021 9:22 AM) [id number]
== END ==
LOC: RAD 09:07
PROVIDERS: ATTEND Internal Medicine Pulmonary Disease
DX: J84.10 Pulmonary fibrosis, unspecified (principal); J84.89 Other specified interstitial pulmonary diseases; R06.02 Shortness of breath; Z95.1 Presence of aortocoronary bypass graft; Z95.0 Presence of cardiac pacemaker
CPT/HCPCS: 71046